=== PATIENT | female | born 1960 | race Caucasian/White ===

== ENCOUNTER → 2023-08-17 14:19 | Outpatient (REF) | payer OTHER, MEDICARE, SELFPAY | LOC: HWWDC 14:19 | PROVIDERS: ATTENDING PHYSICIAN Family Medicine | DX: Z12.31 Encounter for screening mammogram for malignant neoplasm of breast (principal) | CPT/HCPCS: 77063; 77067 ==

== ENCOUNTER → 2023-11-23 08:10 | Outpatient (REF) | payer OTHER, MEDICARE, SELFPAY | LOC: HWCARD 08:10 | PROVIDERS: ATTENDING PHYSICIAN Orthopaedic Surgery; FAMILY PHYSICIAN Family Medicine | DX: Z01.818 Encounter for other preprocedural examination (principal) | CPT/HCPCS: 93005 ==

== ENCOUNTER → 2024-01-25 08:41 | Outpatient (REF) | payer OTHER, MEDICARE, SELFPAY ==
[2024-01-25 12:13] LABS: % Basophils 0.9 % (0-2); % Eosinophils 1.2 % (0-6); % Immature Granulocytes 0.4 % (0-0.5); % Lymphocytes 38.4 % (20.5-51.1); % Neutrophils 52.1 % (42.2-75.2); Absolute Basophils 0.1 10^3/uL (0-0.2); Absolute Eosinophils 0.1 10^3/uL (0-0.7); Absolute Lymphocytes 2.2 10^3/uL (1.2-3.4); Absolute Monocytes 0.4 10^3/uL (0.1-0.6); Hematocrit 36.1 % (37.0-47.0); Hemoglobin 11.4 g/dL (12.0-16.0); Mean Corp Hgb Conc. 31.6 g/dL (33.0-37.0); Mean Corpuscular Hgb 25.9 pg (27.0-31.0); Mean Corpuscular Volume 81.9 fL (81.0-99.0); Mean Platelet Volume 9.4 fL (7.4-10.4); Nucleated Red Blood Cells % 0 %; Platelet Count 322 10^3/uL (130-400); Red Blood Cell Count 4.41 10^6/uL (4.20-5.40); Red Cell Dist. Width 14.1 % (11.5-14.5); White Blood Cell Count 5.7 10^3/uL (4.8-10.8)
[2024-01-25 12:26] LABS: Blood Urea Nitrogen 22 mg/dl (7-17); Calcium 9.7 mg/dl (8.4-10.2); Carbon Dioxide 29 mmol/L (22-30); Chloride 101 mmol/L (98-107); Glucose 138 mg/dl (70-99); Potassium 4.6 mmol/L (3.5-5.1); Sodium 142 mmol/L (135-145); eGFR > 60.00
== END ==
LOC: HWLAB 08:41
PROVIDERS: ATTENDING PHYSICIAN Orthopaedic Surgery; FAMILY PHYSICIAN Family Medicine
DX: Z01.818 Encounter for other preprocedural examination (principal)
CPT/HCPCS: 36415; 80048; 85025

== ENCOUNTER → 2024-08-13 08:18 | Outpatient (REF) | payer OTHER, MEDICARE, SELFPAY | LOC: RAD 08:18 | PROVIDERS: ATTENDING PHYSICIAN Physician Assistant | DX: R11.10 Vomiting, unspecified (principal); R63.4 Abnormal weight loss; R10.13 Epigastric pain; K21.9 Gastro-esophageal reflux disease without esophagitis; Z98.84 Bariatric surgery status | CPT/HCPCS: 74246 ==

== ENCOUNTER → 2024-09-19 07:53 | Outpatient (REF) | payer OTHER, MEDICARE, SELFPAY | LOC: HWWDC 07:53 | PROVIDERS: ATTENDING PHYSICIAN Family Medicine | DX: Z12.31 Encounter for screening mammogram for malignant neoplasm of breast (principal) | CPT/HCPCS: 77063; 77067 ==

== ENCOUNTER → 2024-10-10 09:56 | Outpatient (REF) | payer OTHER, MEDICARE, SELFPAY ==
[2024-10-10 10:45] VITALS: BP 110/64; BP_SYST 71
== END ==
LOC: RADI 09:56
PROVIDERS: ATTENDING PHYSICIAN Orthopaedic Surgery Hand Surgery; FAMILY PHYSICIAN Family Medicine
DX: M25.511 Pain in right shoulder (principal); Z96.611 Presence of right artificial shoulder joint
CPT/HCPCS: 20610; 36415; 73200; 76942; 77002; 85025; 85652; 86140; 87015; 87070; 87075; 87205

== ENCOUNTER → 2024-11-06 11:16 | Outpatient (REF) | payer OTHER, MEDICARE, SELFPAY | LOC: RAD 11:16 | PROVIDERS: ATTENDING PHYSICIAN Physician Assistant; FAMILY PHYSICIAN Family Medicine | DX: R10.13 Epigastric pain (principal); R63.4 Abnormal weight loss; R11.10 Vomiting, unspecified; Z98.84 Bariatric surgery status | CPT/HCPCS: 74177; Q9967 ==

== ENCOUNTER 2024-12-10 07:40 | Day surgery (SDC) | payer OTHER, MEDICARE, SELFPAY ==
--- NOTE | 2024-11-06 11:02 | CM ---
CM reviewed medical records. CM left message for CM [place]. CM will continue to follow.
--- NOTE | 2024-11-11 13:32 | CM ---
CM reviewed medical records.
Demographics: confirmed
Living situation: Lives with
Support Person Post Operatively:
History of
VN:yes, currently not on service
SNF: No
Outpatient: Plans to make appointment with [facility] when medically cleard.
Has patient purchased required equipment: yes
PCP: Pepe
Pharmacy: [facility]
Post Operative Discharge Plan: Outpatient PT when medically cleared.
[2024-11-29 14:12] VITALS: BMI 18.8
[2024-11-29 14:35] LABS: Hematocrit 33.3 % (37.0-47.0); Hemoglobin 10.2 g/dL (12.0-16.0); Mean Corp Hgb Conc. 30.6 g/dL (33.0-37.0); Mean Corpuscular Volume 79.5 fL (81.0-99.0); Platelet Count 314 10^3/uL (130-400); Red Cell Dist. Width 14.6 % (11.5-14.5)
[2024-11-29 15:29] LABS: ALT (SGPT) 16 U/L (0-35); AST (SGOT) 21 U/L (14-36); Albumin 4.4 g/dl (3.5-5.0); Alkaline Phosphatase 71 U/L (38-126); Blood Urea Nitrogen 14 mg/dl (7-17); Calcium 9.9 mg/dl (8.4-10.2); Carbon Dioxide 28 mmol/L (22-30); Chloride 104 mmol/L (98-107); Estimated Creatinine Clearance 92 ml/min; Glucose 86 mg/dl (70-99); Potassium 4.9 mmol/L (3.5-5.1); Sodium 139 mmol/L (135-145); Total Protein 7.4 g/dl (6.3-8.2); eGFR > 60.00
[2024-11-30 09:18] LABS: Glycohemoglobin (HgbA1c) 5.8 % (4.0-5.6)
[2024-12-10] VITALS (9 sets, daily range): BP systolic 104–122; BP diastolic 51–68; BMI 18.8
--- NOTE | 2024-12-10 06:53 | W.PN.ORTHO ---
Today's Communication / Plan
-
d/c when stable
Assessment
.
Dressing:
Clean, dry and intact.
Assessment:
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
with resultant iron deficiency. She is up to date with GI and was
place on iron supplement
-IV iron while inpatient-check B12 stores.
Plan
.
Surgery / Date: R Revision [facility]SA Dr Hobson 12/10/24
DVT Prophylaxis: Aspirin
Activity:
Out of bed.
PT/OT
Discharge Plan: Home
Subjective
.
.:
.
Vital Signs and Labs
.
Vital Signs and Labs:
Lab Results
11/29/24 12:22
11/29/24 12:22
[2024-12-10] MEDS: NORMOSOL-R/PLASMALYTE-A 1000 IV (07:51)
[2024-12-10] MEDS: CELEBREX 200 MG PO (07:51)
[2024-12-10] MEDS: TYLENOL 1000 MG PO (07:51)
[2024-12-10 07:54] LABS: Glucose - Point of Care 120 mg/dl (70-99)
--- NOTE | 2024-12-10 08:13 | W.DS.TRANS ---
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
-
Discharge Instructions:
Discharge Diagnosis/Procedures R Revision MAGALIE Hobson 12/10/24
Diet Diabetic, Carb Controlled
Activity With Walker
Driving Restrictions No driving
Bathing Restrictions OK to Shower
Instructions:
Stand-Alone Forms: Total Shoulder Replacement D/C
Changes to Home Medications: Yes
Discharge Medications:
DC Medications w/original date entered in [employer]
potassium citrate 15 mEq (1,620 mg) tablet,extended release 15 meq PO DAILY Electrolyte Repletion 02/04/19
alprazolam 0.25 mg tablet 0.25 mg PO BID 06/07/21
metformin 1,000 mg tablet 1,000 mg PO DAILY 06/07/21
pantoprazole 40 mg tablet,delayed release 40 mg PO DAILY Gastrointestinal issue 06/07/21
rosuvastatin 40 mg tablet (Crestor) 40 mg PO QPM High cholesterol 06/07/21
gabapentin 600 mg tablet 600 mg PO HS 06/09/21
dicyclomine 20 mg tablet 20 mg PO AC 06/14/21
zolpidem 10 mg tablet 10 mg PO HS 01/27/22
biotin 10,000 mcg capsule 10,000 mcg PO DAILY 11/28/24
aalvsegadg-vmhxvpo-cnzyvdgh 50 mg-325 mg-40 mg tablet 1 tab PO Q4H PRN migraines 11/28/24
finasteride 1 mg tablet (Propecia) 1 mg PO HS 11/28/24
multivitamin with iron 1 tab PO DAILY 11/28/24
nystatin 100,000 unit/gram topical powder 1 applic topical PRN PRN breast, abd fold rash 11/28/24
ropinirole 2 mg tablet 2 mg PO BID 11/28/24
tirzepatide 10 mg/0.5 mL subcutaneous pen injector (Mounjaro) 10 mg SC FR 11/28/24
venlafaxine 37.5 mg tablet,extended release 24 hr 37.5 mg PO DAILY 11/28/24
celecoxib 200 mg capsule 200 mg PO DAILY Anti-inflammatory #14 caps 11/29/24
dexamethasone 4 mg tablet 4 mg PO BID inflammation #6 tabs 11/29/24
doxycycline hyclate 100 mg capsule 100 mg PO BID infection prevention #10 caps 11/29/24
mupirocin 2 % topical ointment 1 applic topical BID infection prevention #1 tube 11/29/24
ondansetron 4 mg disintegrating tablet 4 mg PO Q6H PRN n/v #20 tabs 11/29/24
oxycodone 5 mg tablet 5 mg PO Q6H PRN 1 tab moderate pain, 2 tabs severe pain #30 tabs 11/29/24
Saccharomyces boulardii 250 mg capsule (Florastor) 250 mg PO BID #1 cap 12/10/24
acetaminophen 325 mg tablet (Tylenol) 650 mg (2 x 325 mg) PO QID #1 tab 12/10/24
aspirin 325 mg tablet 325 mg PO DAILY blood clot prevention #1 tab 12/10/24
docusate sodium 100 mg capsule (Colace) 100 mg PO BID stool softner #1 cap 12/10/24
hydrochlorothiazide 25 mg tablet 25 mg PO DAILY Fluid retention/Swelling #0 tabs 12/10/24
magnesium hydroxide 400 mg/5 mL oral suspension (Milk of Magnesia) 30 ml PO HS PRN constipation #1 mL 12/10/24
sennosides 8.6 mg tablet (Senokot) 17.2 mg (2 x 8.6 mg) PO BID laxative #2 tabs 12/10/24
Home Medication Changes
celecoxib 200 mg capsule 200 mg PO DAILY Anti-inflammatory #14 caps 11/29/24
dexamethasone 4 mg tablet 4 mg PO BID inflammation #6 tabs 11/29/24
doxycycline hyclate 100 mg capsule 100 mg PO BID infection prevention #10 caps 11/29/24
mupirocin 2 % topical ointment 1 applic topical BID infection prevention #1 tube 11/29/24
ondansetron 4 mg disintegrating tablet 4 mg PO Q6H PRN n/v #20 tabs 11/29/24
oxycodone 5 mg tablet 5 mg PO Q6H PRN 1 tab moderate pain, 2 tabs severe pain #30 tabs 11/29/24
Saccharomyces boulardii 250 mg capsule (Florastor) 250 mg PO BID #1 cap 12/10/24
acetaminophen 325 mg tablet (Tylenol) 650 mg (2 x 325 mg) PO QID #1 tab 12/10/24
aspirin 325 mg tablet 325 mg PO DAILY blood clot prevention #1 tab 12/10/24
docusate sodium 100 mg capsule (Colace) 100 mg PO BID stool softner #1 cap 12/10/24
hydrochlorothiazide 25 mg tablet 25 mg PO DAILY Fluid retention/Swelling #0 tabs 12/10/24
magnesium hydroxide 400 mg/5 mL oral suspension (Milk of Magnesia) 30 ml PO HS PRN constipation #1 mL 12/10/24
sennosides 8.6 mg tablet (Senokot) 17.2 mg (2 x 8.6 mg) PO BID laxative #2 tabs 12/10/24
Pending Results: No
[2024-12-10 09:26] LABS: Vitamin B12 345 pg/ml (239-931)
[2024-12-10 11:28] LABS: Glucose - Point of Care 119 mg/dl (70-99)
[2024-12-10] MEDS: SUBLIMAZE 50 MCG IV (11:47)
[2024-12-10] MEDS: ANCEF 5 IV (13:26)
== END 2024-12-10 13:46 | disposition home or self-care (01) ==
LOC: SDS 07:40
PROVIDERS: Physician Assistant Medical; ATTENDING PHYSICIAN Orthopaedic Surgery Hand Surgery; FAMILY PHYSICIAN Family Medicine
PROC: 0RRJ0J7 Replacement of Right Shoulder Joint with Synthetic Substitute, Glenoid Surface, Open Approach (ICD-10-PCS; 2024-12-10)
PROC: 0RPJ0J7 Removal of Synthetic Substitute from Right Shoulder Joint, Glenoid Surface, Open Approach (ICD-10-PCS; 2024-12-10)
DX: T84.098A Other mechanical complication of other internal joint prosthesis, initial encounter (principal); K90.9 Intestinal malabsorption, unspecified; Y79.2 Prosthetic and other implants, materials and accessory orthopedic devices associated with adverse incidents; I10 Essential (primary) hypertension; E78.5 Hyperlipidemia, unspecified; R06.09 Other forms of dyspnea; E11.9 Type 2 diabetes mellitus without complications; K21.9 Gastro-esophageal reflux disease without esophagitis; D50.9 Iron deficiency anemia, unspecified; F32.A Depression, unspecified; F41.9 Anxiety disorder, unspecified; G47.00 Insomnia, unspecified; Z96.651 Presence of right artificial knee joint; Z96.611 Presence of right artificial shoulder joint; Z98.84 Bariatric surgery status; Z98.1 Arthrodesis status; Z87.891 Personal history of nicotine dependence; Z79.84 Long term (current) use of oral hypoglycemic drugs; Z79.85 Long-term (current) use of injectable non-insulin antidiabetic drugs; Z86.0100 Personal history of colon polyps, unspecified
CPT/HCPCS: 23474; 36415; 73020; 80053; 82607; 82962; 83036; 85027; 86850; 86900; 86901; 87070; 93005; C1713; C1776

== ENCOUNTER 2024-12-18 21:06 | Observation (INO) | payer OTHER, MEDICARE, SELFPAY ==
[2024-12-18] VITALS (15 sets, daily range): BP systolic 98–157; BP diastolic 55–78; BMI 26.4
[2024-12-18 14:58] LABS: Hematocrit 34.6 % (37.0-47.0); Hemoglobin 10.8 g/dL (12.0-16.0); Mean Corp Hgb Conc. 31.2 g/dL (33.0-37.0); Mean Corpuscular Volume 75.1 fL (81.0-99.0); Nucleated Red Blood Cells % 0 %; Platelet Count 330 10^3/uL (130-400); Red Cell Dist. Width 15.6 % (11.5-14.5)
[2024-12-18 15:11] LABS: ALT (SGPT) 15 U/L (0-35); AST (SGOT) 16 U/L (14-36); Albumin 4.4 g/dl (3.5-5.0); Alkaline Phosphatase 76 U/L (38-126); Blood Urea Nitrogen 14 mg/dl (7-17); Calcium 9.7 mg/dl (8.4-10.2); Carbon Dioxide 26 mmol/L (22-30); Chloride 99 mmol/L (98-107); Glucose 142 mg/dl (70-99); Lipase 94 U/L (23-300); Potassium 2.8 mmol/L (3.5-5.1); Sodium 135 mmol/L (135-145); Total Protein 7.4 g/dl (6.3-8.2); eGFR > 60.00
[2024-12-18] MEDS: NSS 1000 IV (16:09)
[2024-12-18] MEDS: ZOFRAN 4 MG IV ×2 (16:12→17:22)
[2024-12-18] MEDS: DILAUDID 0.5 MG IV ×2 (16:13→17:25)
[2024-12-18 16:28] LABS: Magnesium 1.9 mg/dl (1.6-2.3)
--- NOTE | 2024-12-18 16:58 | ED.GENMED ---
History of Present Illness
<Lynsey Driver PA-C - Last Filed: 12/19/24 16:48>
General
Chief Complaint: Abdominal Symptoms
Source: patient
Exam Limitations: none
Time Seen by Provider: 12/18/24 14:40
Nursing documentation reviewed up to this point in time: agreed with
History of Present Illness
History of Present Illness:
Patient is a 64-year-old female with history diabetes who presents to the emergency department for evaluation of abdominal pain and intractable vomiting. She reports onset of pain Monday associated with multiple episodes of vomiting. She has had
pretty significant anorexia and has been unable to tolerate any oral intake over the past few days. She initially thought symptoms were secondary to constipation however she did have a bowel movement on Monday and symptoms persisted. No fever or
chills. No diarrhea. No chest pain or shortness of breath.
Patient is 8 days postop from right total shoulder replacement performed by Dr. Hobson. This was uncomplicated. She is not on any narcotic pain medication or oral anticoagulation.
Patient had a gastric bypass surgery many years ago. No history of bowel obstructions.
Past History
<Lynsey Driver PA-C - Last Filed: 12/19/24 16:48>
Past History
ED Past Medical History: GERD and NIDDM
ED Past Surgical History: Orthopedic
Social History
Tobacco: Former smoker
Alcohol: None
Drug: None
Personal:
Living: with family
Review of Systems
<Lynsey Driver PA-C - Last Filed: 12/19/24 16:48>
Review of Systems
Allergies reviewed?: Yes
All Other Systems: ROS reviewed and negative except as documented in HPI and ROS
Phy Exam
<Lynsey Driver PA-C - Last Filed: 12/19/24 16:48>
Physical Exam
Physical Exam:
Vitals: Patient's vital signs are stable. Afebrile
General: Patient is actively retching and uncomfortable appearing.
Skin: Warm and dry, no rashes or lesions
Head: Normocephalic, atraumatic
Eyes: Sclera nonicteric. EOMs intact. No nystagmus.
Throat: Protecting airway
Neck: Normal ROM, no cervical spine tenderness, no meningismus
Cardiac: Regular rate and rhythm, no murmurs.
Pulm: Normal respiratory effort, no wheezes, rales, rhonchi heard on exam
Abdomen: Abdomen soft. No areas of focal tenderness. No rebound tenderness or guarding.
Extremities: No evidence of cyanosis or edema. Well-healing surgical scar on right shoulder. No surrounding erythema or bleeding.
Neuro: AAOx3. Grossly intact.
Psychiatric: Normal affect.
Course
<Lynsey Driver PA-C - Last Filed: 12/19/24 16:48>
Orders/Labs/Results
Orders:
Orders
12/18/24 14:35
Complete Blood Count/With Diff Urgent
Comprehensive Metabolic Panel Urgent
Lipase Urgent
Magnesium Urgent
Comment: ADD ON
12/18/24 Dinner
NPO
Allow oral meds: Yes
Allow clear liquids: No
NPO with Ice Chips: Yes
12/18/24 15:12
Electrocardiogram (*1) Stat
Reason for Study: Other
Other Reason for Exam: chest pain
Cardiac Monitoring- Treatment ONCE
EKG- Treatment ONCE
12/18/24 15:32
Add On- LAB Urgent
Tests Added?: magnesium
0.9% Sodium Chloride 1000 ml [Nss] 1,000 ml IV BOLUS
Iohexol [Omnipaque] See Protocol PO NOW STA
Ondansetron Injectable [Zofran] 4 mg IV NOW STA
12/18/24 15:33
CT Abd/Pel (IV only)-DH only Urgent
Reason For Exam: Diffuse abdominal pain
12/18/24 15:54
HYDROmorphone [Dilaudid] 0.5 mg IV NOW STA
12/18/24 16:10
Lactic Acid Q4H
Comment: CANCEL 2nd LACTIC ACID IF 1st LACTIC ACID IS LESS THAN 2
12/18/24 17:12
HYDROmorphone [Dilaudid] 0.5 mg IV NOW STA
Ondansetron Injectable [Zofran] 4 mg IV NOW STA
12/18/24 17:20
Potassium Chloride [KCl] 40 meq 0.9% Sodium Chloride 250 ml [Nss] 250 ml IV NOW
12/18/24 18:00
0.9% Sodium Chloride 500 ml [Nss] 500 ml IV 100 mls/hr
12/18/24 19:43
Alprazolam [Xanax] 0.25 mg PO NOW STA
Promethazine [Phenergan] 12.5 mg 0.9% Sodium Chloride 50 ml [Nss] 50 ml IV NOW
12/18/24 19:44
HYDROmorphone [Dilaudid] 1 mg IV NOW STA
Pantoprazole [Protonix IV] 40 mg IV NOW STA
12/18/24 19:45
0.9% Sodium Chloride 1000 ml [Nss] 1,000 ml IV 100 mls/hr
12/18/24 19:51
Admit/Transfer Patient As Directed
Co-Sign Provider:
Level of Care: Observation services
Assign to:: Medical/Surgical
Physician / Group: colette cole
Diagnosis: duodenitis wintract vomitiing post r shoulder, hypokalemia
Code Status As Directed
Resuscitation Status: Full Code
12/18/24 19:55
PRN Pain Medication Management As Directed
May give lesser potent ordered pain med per pt: Yes
preference::
Protocol:: Medication orders for pain may be administered in a
manner that supports deferring to patient preference
when the pt is:
- Requesting an ordered lesser potent pain medication.
Least to most potent pain medications are defined
as: acetaminophen < NSAID < tramadol < opioids
(morphine, oxycodone, hydromorphone).
- Requesting a lesser dose of the same medication IF
ORDERED.
- Requesting a less intrusive route of administration
if both routes are prescribed by the provider (PO <
IV).
12/18/24 19:57
0.9% Sodium Chloride [Nss (Preservative Free)] 10 ml IV NOW STA
12/18/24 20:19
0.9% Sodium Chloride 1000 ml [Nss] 1,000 ml Mvi, Adult [Multivitamin] 10 ml Thiamine Injection 100 mg IV 100 mls/hr
12/18/24 21:36
Dextrose 50%-Water [Dextrose 50% Syringe] 12.5 grams IV [id number] PRN
Glucagon [GlucaGen] 1 mg IM PRN PRN
Heparin 5,000 units SC Q12
Ondansetron Injectable [Zofran] 4 mg IV Q6HPRN PRN
Promethazine [Phenergan] 12.5 mg 0.9% Sodium Chloride 50 ml [Nss] 50 ml IV Q4HPRN
Ropinirole [Requip] 2 mg PO BID
12/18/24 21:36
Activity As Directed
Activity Level: As Tolerated
Bedside Glucose Monitoring As Directed
Frequency: AC&HS
Additional Instructions:: Change to q6h if pt on TPN, tube feeding or not eating
Vital Signs As Directed
Frequency: Per unit guidelines
DX Deep Vein Thrombosis Video Routine
12/18/24 22:00
Gabapentin [Neurontin] 600 mg PO HS
12/19/24 00:00
Potassium Chloride [KCl] 40 meq 0.9% Sodium Chloride 250 ml [Nss] 250 ml IV ONCE
12/19/24 07:13
Complete Blood Count/With Diff IN AM
Comprehensive Metabolic Panel IN AM
12/19/24 07:30
Dicyclomine [Bentyl] 40 mg PO AC
Insulin Aspart Corrective Low [Novolog Flexpen-Low Resistance] See Protocol SC AC
12/19/24 08:00
Alprazolam [Xanax] 0.25 mg PO TIDPRN PRN ANEXITY
Venlafaxine Extended Release [Effexor Xr] 37.5 mg PO DAILY
Abnormal Lab Results
12/18/24
14:35
WBC 12.6 H 10^3/uL
(4.8-10.8)
Hgb 10.8 L g/dL
(12.0-16.0)
Hct 34.6 L %
(37.0-47.0)
MCV 75.1 L fL
(81.0-99.0)
MCH 23.4 L pg
(27.0-31.0)
MCHC 31.2 L g/dL
(33.0-37.0)
RDW 15.6 H %
(11.5-14.5)
Abs Immat Gran (auto) 0.1 H 10^3/uL
(0-0.05)
Absolute Neuts (auto) 10.6 H 10^3/uL
(1.4-6.5)
Absolute Monos (auto) 0.7 H 10^3/uL
(0.1-0.6)
Neutrophils % 84.1 H %
(42.2-75.2)
Lymphocytes % 9.5 L %
(20.5-51.1)
Potassium 2.8 L mmol/L
(3.5-5.1)
Creatinine 0.4 L mg/dL
(0.6-1.0)
Glucose 142 H mg/dl
(70-99)
10/01/25 14:35
12/18/24 14:35
Vital Signs
Initial and Last Documented VS:
Initial Vital Signs
Temp Pulse Resp BP Pulse Ox
99.0 F 107 20 119/61 100
12/18/24 14:16 12/18/24 14:16 12/18/24 14:16 12/18/24 14:16 12/18/24 14:16
Last Documented Vital Signs
Temp Pulse Resp BP Pulse Ox
98.9 F 72 18 164/82 99
12/19/24 15:45 12/19/24 15:45 12/19/24 15:45 12/19/24 15:45 12/19/24 15:45
<Zi Tam, DO - Last Filed: 12/18/24 18:43>
Orders/Labs/Results
Orders:
Orders
12/18/24 14:35
Complete Blood Count/With Diff Urgent
Comprehensive Metabolic Panel Urgent
Lipase Urgent
Magnesium Urgent
Comment: ADD ON
12/18/24 Dinner
NPO
Allow oral meds: Yes
Allow clear liquids: No
NPO with Ice Chips: Yes
12/18/24 15:12
Electrocardiogram (*1) Stat
Reason for Study: Other
Other Reason for Exam: chest pain
Cardiac Monitoring- Treatment ONCE
EKG- Treatment ONCE
12/18/24 15:32
Add On- LAB Urgent
Tests Added?: magnesium
0.9% Sodium Chloride 1000 ml [Nss] 1,000 ml IV BOLUS
Iohexol [Omnipaque] See Protocol PO NOW STA
Ondansetron Injectable [Zofran] 4 mg IV NOW STA
12/18/24 15:33
CT Abd/Pel (IV only)-DH only Urgent
Reason For Exam: Diffuse abdominal pain
12/18/24 15:54
HYDROmorphone [Dilaudid] 0.5 mg IV NOW STA
12/18/24 16:10
Lactic Acid Q4H
Comment: CANCEL 2nd LACTIC ACID IF 1st LACTIC ACID IS LESS THAN 2
12/18/24 17:12
HYDROmorphone [Dilaudid] 0.5 mg IV NOW STA
Ondansetron Injectable [Zofran] 4 mg IV NOW STA
12/18/24 17:20
Potassium Chloride [KCl] 40 meq 0.9% Sodium Chloride 250 ml [Nss] 250 ml IV NOW
12/18/24 18:00
0.9% Sodium Chloride 500 ml [Nss] 500 ml IV 100 mls/hr
12/18/24 19:43
Alprazolam [Xanax] 0.25 mg PO NOW STA
Promethazine [Phenergan] 12.5 mg 0.9% Sodium Chloride 50 ml [Nss] 50 ml IV NOW
12/18/24 19:44
HYDROmorphone [Dilaudid] 1 mg IV NOW STA
Pantoprazole [Protonix IV] 40 mg IV NOW STA
12/18/24 19:45
0.9% Sodium Chloride 1000 ml [Nss] 1,000 ml IV 100 mls/hr
12/18/24 19:51
Admit/Transfer Patient As Directed
Co-Sign Provider:
Level of Care: Observation services
Assign to:: Medical/Surgical
Physician / Group: colette cole
Diagnosis: duodenitis wintract vomitiing post r shoulder, hypokalemia
Code Status As Directed
Resuscitation Status: Full Code
12/18/24 19:55
PRN Pain Medication Management As Directed
May give lesser potent ordered pain med per pt: Yes
preference::
Protocol:: Medication orders for pain may be administered in a
manner that supports deferring to patient preference
when the pt is:
- Requesting an ordered lesser potent pain medication.
Least to most potent pain medications are defined
as: acetaminophen < NSAID < tramadol < opioids
(morphine, oxycodone, hydromorphone).
- Requesting a lesser dose of the same medication IF
ORDERED.
- Requesting a less intrusive route of administration
if both routes are prescribed by the provider (PO <
IV).
12/18/24 19:57
0.9% Sodium Chloride [Nss (Preservative Free)] 10 ml IV NOW STA
12/18/24 20:19
0.9% Sodium Chloride 1000 ml [Nss] 1,000 ml Mvi, Adult [Multivitamin] 10 ml Thiamine Injection 100 mg IV 100 mls/hr
12/18/24 21:36
Dextrose 50%-Water [Dextrose 50% Syringe] 12.5 grams IV [id number] PRN
Glucagon [GlucaGen] 1 mg IM PRN PRN
Heparin 5,000 units SC Q12
Ondansetron Injectable [Zofran] 4 mg IV Q6HPRN PRN
Promethazine [Phenergan] 12.5 mg 0.9% Sodium Chloride 50 ml [Nss] 50 ml IV Q4HPRN
Ropinirole [Requip] 2 mg PO BID
12/18/24 21:36
Activity As Directed
Activity Level: As Tolerated
Bedside Glucose Monitoring As Directed
Frequency: AC&HS
Additional Instructions:: Change to q6h if pt on TPN, tube feeding or not eating
Vital Signs As Directed
Frequency: Per unit guidelines
DX Deep Vein Thrombosis Video Routine
12/18/24 22:00
Gabapentin [Neurontin] 600 mg PO HS
12/19/24 00:00
Potassium Chloride [KCl] 40 meq 0.9% Sodium Chloride 250 ml [Nss] 250 ml IV ONCE
12/19/24 07:13
Complete Blood Count/With Diff IN AM
Comprehensive Metabolic Panel IN AM
12/19/24 07:30
Dicyclomine [Bentyl] 40 mg PO AC
Insulin Aspart Corrective Low [Novolog Flexpen-Low Resistance] See Protocol SC AC
12/19/24 08:00
Alprazolam [Xanax] 0.25 mg PO TIDPRN PRN ANEXITY
Venlafaxine Extended Release [Effexor Xr] 37.5 mg PO DAILY
Abnormal Lab Results
12/18/24
14:35
WBC 12.6 H 10^3/uL
(4.8-10.8)
Hgb 10.8 L g/dL
(12.0-16.0)
Hct 34.6 L %
(37.0-47.0)
MCV 75.1 L fL
(81.0-99.0)
MCH 23.4 L pg
(27.0-31.0)
MCHC 31.2 L g/dL
(33.0-37.0)
RDW 15.6 H %
(11.5-14.5)
Abs Immat Gran (auto) 0.1 H 10^3/uL
(0-0.05)
Absolute Neuts (auto) 10.6 H 10^3/uL
(1.4-6.5)
Absolute Monos (auto) 0.7 H 10^3/uL
(0.1-0.6)
Neutrophils % 84.1 H %
(42.2-75.2)
Lymphocytes % 9.5 L %
(20.5-51.1)
Potassium 2.8 L mmol/L
(3.5-5.1)
Creatinine 0.4 L mg/dL
(0.6-1.0)
Glucose 142 H mg/dl
(70-99)
12/18/24 14:35
12/18/24 14:35
Vital Signs
Initial and Last Documented VS:
Initial Vital Signs
Temp Pulse Resp BP Pulse Ox
99.0 F 107 20 119/61 100
12/18/24 14:16 12/18/24 14:16 12/18/24 14:16 12/18/24 14:16 12/18/24 14:16
Last Documented Vital Signs
Temp Pulse Resp BP Pulse Ox
98.9 F 72 18 164/82 99
12/19/24 15:45 12/19/24 15:45 12/19/24 15:45 12/19/24 15:45 12/19/24 15:45
<Lynsey Driver PA-C - Last Filed: 12/19/24 16:48>
MDM/Problems Addressed
Differential Diagnosis Includes:
Not limited to: viral gastroenteritis, bowel obstruction, diverticulitis, pancreatitis, acute cholecystitis, etc
MDM/Problems Addressed:
64-year-old female with four days of diffuse abdominal pain and intractable vomiting, unable to tolerate PO intake. She is 8 days s/p right total shoulder replacement. No fevers.
Vitals and physical exam as above.
Labs were sent prior to my initial evaluation significant for mild leukocytosis and acute hypokalemia with potassium of 2.8. I suspect this is likely secondary to G.I. losses.
Will add on magnesium level and obtain lactic acid. Will get CT scan abdomen/pelvis. Will treat pain, give IV fluids and reassess.
Update: magnesium and lactic acid level normal. Patient unfortunately was unable to tolerate oral contrast due to intractable vomiting. However � her CT scan shows no evidence of obstruction, however, does note findings of likely duoddenitis.
No fever � will hold antibiotics at this time. However � given acute hypokalemia and intractable vomiting, patient will require admission for further management. Patient given 40 IV potassium in ED. Hospitalist aware.
Chronic conditions affecting care:
N/A
Acute Exacerbation and/or Progression of Chronic Illness:
N/A
<Lynsey Driver PA-C - Last Filed: 12/19/24 16:48>
*Radiology
Radiology exam reviewed: radiology read reviewed
*Pulse Oximetry
SaO2: 98
Oxygen Mode of Delivery: Room air
Patient hypoxic: no
*EKG
Interpreted by ED Provider?: Yes
EKG Intrepretation Date: 12/18/24
Interpretation: abnormal
Comparison EKG: changes noted
Heart Rate: 82
Rate: normal
Rhythm: sinus
Ridge: normal axis
Interval: normal QT interval
QRS Pattern: normal QRS
Ischemia: non-specific ST changes
*Bale Piler Interpretation
Rate: normal
Interpretation: normal
Heart Rate: 72
Rhythm: sinus
*Critical Care Note
Total Time (30-74mins, 75-104mins- exclusive of procedures): Not Applicable
<Lynsey Driver PA-C - Last Filed: 12/19/24 16:48>
Patient Management
Discussion with other providers: Hospitalist
Escalation/DeEscalation of care consider admission/obs:
Admitted for acute hypokalemia, pain management
ED Attending Note
<Lynsey Driver PA-C - Last Filed: 12/19/24 16:48>
-
Portions of this chart may have been created with voice recognition software.� Occasional wrong word or��sound alike� substitutions may have occurred due to the inherent limitations of voice recognition software.
<Zi Tam DO - Last Filed: 12/18/24 18:43>
ED Attending Note
Patient seen and examined by attending physician: Yes
I performed the substantive portion of visit, reviewed & personally made and approve the management plan that is documented in note by myself or ELIAS.: Yes
ED Attending Note:
Seen with PA examined independently abdominal pain nausea vomiting low potassium CT report noted labs are noted not tolerating p.o. will require admission
Discharge Plan
Departure
Patient Disposition: Admit
Date of Disposition: 12/18/24
Time of Disposition: 18:09
Presentation/result/management discussed w/ accepting MD/DO: Hospitalist
Discharge Problem:
Acute duodenitis, Acute hypokalemia
Interventions
Interventions:
*Risk Screen - Suicide Last Done: 12/18/24 21:48
*General Assessment Last Done: 12/18/24 14:16
*Neglect/Abuse Screening Last Done: 12/18/24 14:44
*ED COVID-19 Vaccine History Last Done: 12/18/24 14:44
*ED Influenza Vaccine History Last Done: 12/18/24 14:44
*Nursing Disposition Last Done: 12/18/24 21:35
AD-Tetquk-Shdkobsoqp Assessment Last Done: 12/18/24 14:44
Discharge Date and Time
Discharge Date/Time: 12/18/24 21:36
[2024-12-18] MEDS: NSS 500 IV (18:04)
[2024-12-18] MEDS: KCL 270 MEQ IV ×2 (18:05→23:38)
--- NOTE | 2024-12-18 19:19 | HPS.HSE ---
Family Physician
-
Family Physician: Ham Price
Chief Complaint
-
Intractable abdominal pain with vomiting
History of Present Illness
64-year-old female complaining of abdominal pain with intractable vomiting since Monday x 3 days. She reports inability to tolerate any oral intake over the past few days. She thought symptoms were due to prior constipation for 4 days post surgery
however she did have bowel movement on Monday. She does report taking Celebrex once daily from Monday to Monday along with Tylenol and she did take her Mounjaro postsurgery on 12/13. She is 8 days postop from right total shoulder replacement
performed by Dr. Hobson with dressing in place over the right shoulder. She states she has had ongoing abdominal pain and has been decreasing her Mounjaro dose she had recent [facility] [place] with [facility] in [place] that was normal
and thought to be possibly gastroparesis from Mounjaro and patient's gastric bypass however patient states she has never had persistent vomiting from her abdominal pain.
She denies fever, chills, chest pain, palpitations, cough, shortness of breath, diarrhea, rash, urinary symptoms. She has past medical history of gastric bypass surgery, GERD, DM 2, HLD, migraines, renal calculi, arthritis, anxiety, insomnia.
Medical History
Past Medical History
Past Medical History: Reports Other
Additional Past Medical History:
Gastric bypass surgery
GERD
DM 2
HLD
Migraines
Renal calculi
Arthritis
Anxiety
Insomnia
Past Surgical History: Reports Other
Additional Past Surgical History:
Gastric bypass
L5 fusion 2018
Right shoulder replacement June 2018, November 2024
section x 3
Hammertoe repair
CTR both wrist
Right knee surgery
Social History
Tobacco: Non-smoker
Alcohol: None
Drug: None
Personal:
Living: With Family ()
Family History
Family History: Not pertinent
Allergies / Home Medications
Allergies reflects when Allergies were last updated in [facility].
Home Medications with original date entered in [facility]
Allergy/Medication List:
Allergies
Allergy/AdvReac Type Severity Reaction Status Date / Time
No Known Allergies Allergy Verified 12/18/24 14:20
Home Medications
potassium citrate 15 mEq (1,620 mg) tablet,extended release 15 meq PO BID Electrolyte Repletion 02/04/19
alprazolam 0.25 mg tablet 0.25 mg PO TIDPRN PRN ANEXITY 06/07/21
metformin 1,000 mg tablet 1,000 mg PO DAILY 06/07/21
pantoprazole 40 mg tablet,delayed release 40 mg PO DAILY Gastrointestinal issue 06/07/21
rosuvastatin 40 mg tablet (Crestor) 40 mg PO QPM High cholesterol 06/07/21
gabapentin 600 mg tablet 600 mg PO HS 06/09/21
dicyclomine 20 mg tablet 40 mg PO AC 06/14/21
zolpidem 10 mg tablet 10 mg PO HS 01/27/22
biotin 10,000 mcg capsule 10,000 mcg PO DAILY 11/28/24
mytktaefwq-tcbzehx-cmaimfzh 50 mg-325 mg-40 mg tablet 1 tab PO Q6HPRN PRN HEADACHES 11/28/24
finasteride 1 mg tablet (Propecia) 1 mg PO HS 11/28/24
ropinirole 2 mg tablet 2 mg PO BID 11/28/24
tirzepatide 10 mg/0.5 mL subcutaneous pen injector (Mounjaro) 10 mg SC FR 11/28/24
venlafaxine 37.5 mg tablet,extended release 24 hr 37.5 mg PO DAILY 11/28/24
hydrochlorothiazide 25 mg tablet 25 mg PO DAILY Fluid retention/Swelling #0 tabs 12/10/24
estradiol 0.01% (0.1 mg/gram) vaginal cream (Estrace) 1 appful vaginal WESA 12/18/24
therapeutic multivitamin 1 tab PO DAILY 12/18/24
Review of Systems
-
History Source: Patient and Family ( at bedside)
A 12 point ROS was completed and negative except as noted: Yes
Constitutional: Denies Chills
EENT: Denies Sore Throat or Runny Nose
Respiratory: Denies Cough or Trouble Breathing
Cardiac: Denies Chest Pain, Diaphoresis, Palpitations or Syncope
Abdomen/GI: Reports Abdominal Pain, Nausea and Vomiting; Denies Diarrhea or Constipated
: Denies Dysuria, Frequency, Flank Pain, Incontinence, Difficulty Voiding or Urgency
Musculoskeletal: Reports Joint Pain (Status post right shoulder replacement dressing in place); Denies Edema
Skin: Denies Itching or Rash
Neurological: Denies Dizzy, Headache or Weakness
Endocrine: Reports No Symptoms
Hematologic/Lymphatic: Reports No Symptoms
Psych: Reports Anxiety
Physical Exam
Vital Signs
Vital Signs
Temp Pulse Resp BP Pulse Ox
98.5 F 76 17 151/76 99
12/18/24 17:19 12/18/24 19:00 12/18/24 19:00 12/18/24 19:00 12/18/24 18:45
Physical Exam
General: Conversant and Pain; No Fever or Chills
HEENT: NormoCephalic, Anicteric, Moist mucous membranes, PERRLA, [place] Conjunctivae and No Ptosis
Respiratory: Clear; No Wheezes, Rales or Rhonchi
Cardiac: S1/S2 and Regular Rhythm; No Murmur, Rub, Gallop or Peripheral Edema
Breast: Deferred by me
GI: Soft, Non Distended, Normal Bowel Sounds and Tender (Generalized)
Rectal: Deferred by Provider
Genito-urinary: Deferred by me
Musculoskeletal: No Clubbing, No Cyanosis and No Edema
Skin: Warm and Dry; No Rash
Neuro: AO x 3, No Motor Deficits, Nonfocal/grossly intact, Cranial Nerves Intact and No Sensory Deficits; No Slurred Speech, Facial Droop, Tremors or Sedated
Psych: Anxious (Due to pain)
Laboratory Results
-
12/18/24 14:35
12/18/24 14:35
Laboratory Results
Lactic Acid Cancelled 12/18/24 19:45
Total Bilirubin 0.5 mg/dl (0.2-1.3) 12/18/24 14:35
AST 16 U/L (14-36) 12/18/24 14:35
ALT 15 U/L (0-35) 12/18/24 14:35
Alkaline Phosphatase 76 U/L (38-126) 12/18/24 14:35
Lipase 94 U/L (23-300) 12/18/24 14:35
Impression/Plan
-
Impression/plan:
Admit to [facility]
#Duodenitis with intractable vomiting likely due to surgery, Celebrex, Mounjaro
#History of gastric bypass
-1500 cc IV NSS given in ER
- Continue IV NSS 100 cc an hour
- IV Zofran, Phenergan
- - IV Protonix
- IV Dilaudid for pain
- Hold HCTZ
-IV banana Bag
- N.p.o. except ice chips
#Status post right shoulder replacement [address] Hobson
- Patient with dressing in place
#Acute hypokalemia due to vomiting
K2.8 KCl 40 mEq rider given in ER
Will give additional KCl 40 mEq rider at midnight
Follow BMP in a.m.
#Gastric bypass surgery
#GERD
-Patient follows with GI Dr. Lagunas in [place] recent [place] [facility] within the last 2 months due to chronic abdominal pain
-Continue IV Protonix 40 mg daily
#DM 2
Hold metformin 1000 mg daily, Mounjaro 10 mg subcu Monday patient last dose was on 12/13/2024 postsurgery
Accu-Cheks with SSI
#HLD
-Hold Crestor 40 mg every afternoon
#Anxiety
Will give alprazolam 0.25 mg now
- Continue alprazolam 0.25 mg p.o. 3 times daily as needed anxiety
-Continue Effexor 37.5 mg daily
#Insomnia
Hold Ambien 10 mg at bedtime
#Restless leg syndrome
Continue gabapentin 600 mg at bedtime and Requip as tolerated
Other PMH:
Migraines no current migraine
Renal calculi-continue potassium citrate 15 mEq p.o. twice daily
Arthritis
DVT prophylaxis
Subcu Lovenox
Full code
--- NOTE | 2024-12-18 20:05 | W.PN.UPDATE ---
Update Note
Progress Note Update
This note serves as an addendum to the H&P by replanting machine operator Hayde Sorto
HPI
64F HX Gastric bypass surgery, GERD, T2DM seen at ER
- Intractable abdominal pain with intractable vomiting since Monday x 3 days.
- inability to tolerate any oral intake over the past few days
- S/P R shoulder replacement on 12/10/[address] Hobson
- does report taking Celebrex once daily from Monday to Monday along with Tylenol
- she did take Tirzepadide (Mounjaro) one a week and she took postsurgery on 12/13.
- has had ongoing abdominal pain and has been decreasing her Mounjaro
- [facility] in [place] that was normal and thought to be possibly gastroparesis from Mounjaro and patient's gastric bypass however patient states she has never had persistent vomiting from her abdominal pain.
ROS
denies fever, chills, chest pain, palpitations, cough, shortness of breath, diarrhea, rash, urinary symptoms.
PHX
Relevant VS
Temp Pulse Resp BP Pulse Ox
98.5 F 76 17 151/76 99
12/18/24 17:19 12/18/24 19:00 12/18/24 19:00 12/18/24 19:00 12/18/24 18:45
PE
Gen: NAD
HEENT: anicteric
Neck: supple
Lungs: CTA
Cor: S1/S2 and Regular Rhythm
Abdomen:�Soft, Non Distended,
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
MS: no edema
Relevant Data
12/18/24
14:35
WBC 12.6 H
Hgb 10.8 L
Hct 34.6 L
MCV 75.1 L
MCH 23.4 L
MCHC 31.2 L
RDW 15.6 H
Abs Immat Gran (auto) 0.1 H
Absolute Neuts (auto) 10.6 H
Absolute Monos (auto) 0.7 H
Neutrophils % 84.1 H
Lymphocytes % 9.5 L
Potassium 2.8 L
Creatinine 0.4 L
Glucose [address] Abd/Pel (IV only)-DH only
- Stable postsurgical changes related to previous gastric bypass procedure.
- No gastric dilatation.
- Moderate circumferential wall thickening of the duodenum, raising possibility of duodenitis in the proper clinical setting.
- No bowel obstruction.
- No obstructive uropathy.
ASSESSMENT & PLAN
Duodenitis with epigastric tenderness
HX GERD on EASEMENT MAN PO PPI daily
- associated intractable vomiting likely due to surgery, Celebrex, Mounjaro
- s/p IV NS 1.5 L given in ER
- c/w IV NS
- IV Zofran, Phenergan
- IV Protonix daily
- IV Dilaudid for pain
- Hold HCTZ
Hypokalemia due to UGI loss
- s/p IV KCl 40 x 1 at ER
- Repeat IV KCL 40 at MN
S/P R shoulder replacement [address] Hobson
- dressing in place
Gastric bypass surgery HX
- follows with GI Dr. Lagunas in [place] recent [facility] within the last 2 months due to chronic abdominal pain
- c/w Protonix 40 mg daily
- Empiric IV Banana bag
DMT2
- Hold metformin 1000 mg daily,
- Hold Mounjaro 10 mg subcu Monday patient last dose was on 12/13/2024 postsurgery
- ISS low
HLD
- Hold Crestor 40 mg every afternoon
Anxiety
- c/w EASEMENT MAN alprazolam 0.25 mg p.o. 3 times daily as needed anxiety
- c/w Effexor 37.5 mg daily
Insomnia
Restless leg syndrome
- on gabapentin 600 mg at bedtime and Requip as tolerated
Other PMH:
Migraines no current migraine
Renal calculi-continue potassium citrate 15 mEq p.o. twice daily
Arthritis
DVT Px:LMWH
Code: Full code
IP MS
[2024-12-18] MEDS: PROTONIX IV 40 MG IV (20:18)
[2024-12-18] MEDS: NSS (PRESERVATIVE FREE) 10 ML IV (20:18)
[2024-12-18] MEDS: DILAUDID 1 MG IV (20:28)
[2024-12-18] MEDS: PHENERGAN 50.5 MG IV (20:39)
[2024-12-18] MEDS: XANAX 0.25 MG PO (21:03)
[2024-12-18] MEDS: NEURONTIN PO (22:05)
[2024-12-18] MEDS: HEPARIN 5000 UNITS SC (22:05)
[2024-12-18] MEDS: REQUIP 2 MG PO (22:05)
[2024-12-18] MEDS: MULTIVITAMIN 1011 ML IV (22:11)
[2024-12-18] MEDS: MULTIVITAMIN 1011 MG IV (22:11)
[2024-12-18] MEDS: NSS IV (22:13)
[2024-12-18 22:14] LABS: Glucose - Point of Care 128 mg/dl (70-99)
--- NOTE | 2024-12-19 01:25 | PTCARENOTE ---
Rec'd pt from ER at 2144. transferred to bed. denies pain and says her nausea is a bit better. KCl rider finishing. second started at as ordered. Banana bag started per order. oriented to unit. call davis in reach.
[2024-12-19] MEDS: ZOFRAN 4 MG IV ×3 (01:48→15:27)
--- NOTE | 2024-12-19 01:59 | PTCARENOTE ---
pt with complaint of abdominal pain 9/10, moaning and crying. no prn orders for pain. Rochelle LEUNG was contacted and ordered a stat dose of Dilaudid 1mg and then a prn dose. pt updated. pt also given prn zofran for nausea.
[2024-12-19] MEDS: DILAUDID 1 MG IV (02:01)
[2024-12-19] MEDS: DILAUDID 0.5 MG IV ×2 (04:13→08:45)
[2024-12-19] MEDS: PHENERGAN 50.5 MG IV ×2 (04:34→13:09)
[2024-12-19] MEDS: XANAX 0.25 MG PO ×2 (04:35→09:56)
[2024-12-19 06:41] LABS: Glucose - Point of Care 114 mg/dl (70-99)
[2024-12-19 07:26] VITALS: BP 131/57
[2024-12-19 07:51] LABS: Hematocrit 32.1 % (37.0-47.0); Hemoglobin 9.7 g/dL (12.0-16.0); Mean Corp Hgb Conc. 30.2 g/dL (33.0-37.0); Mean Corpuscular Volume 78.7 fL (81.0-99.0); Nucleated Red Blood Cells % 0 %; Platelet Count 295 10^3/uL (130-400); Red Cell Dist. Width 15.8 % (11.5-14.5)
[2024-12-19 08:24] LABS: ALT (SGPT) 12 U/L (0-35); AST (SGOT) 14 U/L (14-36); Albumin 3.5 g/dl (3.5-5.0); Alkaline Phosphatase 64 U/L (38-126); Blood Urea Nitrogen 13 mg/dl (7-17); Calcium 8.8 mg/dl (8.4-10.2); Carbon Dioxide 27 mmol/L (22-30); Chloride 109 mmol/L (98-107); Estimated Creatinine Clearance 75 ml/min; Glucose 117 mg/dl (70-99); Potassium 3.5 mmol/L (3.5-5.1); Sodium 140 mmol/L (135-145); Total Protein 6.2 g/dl (6.3-8.2); eGFR > 60.00
[2024-12-19] MEDS: NSS 1000 IV ×2 (08:49→21:27)
--- NOTE | 2024-12-19 09:05 | W.PN.HOSP.TC ---
Today's Communication/Plan
-
see A/P
Assessment / Plan
Assessment / Plan
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 She was unable to tolerate any oral intake.
Of note, she had a recent R shoulder replacement on 12/10/[address] Hobson, and has been on Celebrex once daily for pain.
She also is on Mounjaro once a week and last took postsurgery on 12/13.
Due to her ongoing abdominal pain, she has been decreasing her Mounjaro.
CT AP:
Stable postsurgical changes related to previous gastric bypass procedure. No gastric dilatation.
Moderate circumferential wall thickening of the duodenum, raising possibility of duodenitis in the proper clinical setting.
No bowel obstruction. No obstructive uropathy.
A/P:
# N/V and abd cramp/tenderness likely 2/[address] AP
# h/o GERD on COMPLAINT OPERATOR PPI daily
Recc to avoid Celebrex and Mounjaro
Cont IV Zofran PRN, Phenergan PRN
Cont COMPLAINT OPERATOR dicyclomine
IV Protonix change to BID
Avoid IV Dilaudid in setting of current intractable N?V
Check UDS (?marijuana cyclic vomiting syndrome)
Hold COMPLAINT OPERATOR HCTZ
Start clears, cont IVF for now
# Hypokalemia due to UGI loss
replete
Mag level WNL
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
OT eval when more clinically stable
# h/o Gastric bypass surgery
follows with GI Dr. Lagunas in [place]
# NIDDM
Hold metformin 1000 mg daily,
Hold Mounjaro
Cover with ISS low
# HLD
Hold Crestor 40 mg every afternoon
# Anxiety
c/w COMPLAINT OPERATOR alprazolam 0.25 mg p.o. 3 times daily as needed anxiety
c/w Effexor 37.5 mg daily
# Insomnia
# Restless leg syndrome
on gabapentin 600 mg at bedtime and Requip as tolerated
Other PMH:
# Migraines no current migraine
# Renal calculi-continue potassium citrate 15 mEq p.o. twice daily
# Arthritis
DVT Px: LMWH
Code: Full code
DW RN
total time 51 min
Anticipated Discharge: 24 - 48 hours
Subjective/Interval History
-
Date of Service: December 19, 2024
Objective Data
-
Labs:
Laboratory Results
12/19/24
07:13
WBC 8.2
Hgb 9.7 L
Hct 32.1 L
Plt Count 295
Sodium 140
Potassium 3.5
Chloride 109 H
Carbon Dioxide 27
BUN 13
Creatinine 0.4 L
Glucose 117 H
Calcium 8.8
Total Bilirubin 0.3
AST 14
ALT 12
Alkaline Phosphatase 64
Vital Signs:
Vital Signs
Temp Pulse Resp BP Pulse Ox
37.6 C 67 16 131/57 100
12/19/24 07:26 12/19/24 07:26 12/19/24 07:26 12/19/24 07:26 12/19/24 07:26
I&O
12/18/24 12/19/24 12/20/24
06:59 06:59 06:59
Intake Total 1070 / 1070
Balance 1070 / 1070
Review of Systems
-
History Source: Patient
Abdomen/GI: Reports Abdominal Pain (diffuse ), Nausea and Vomiting
Physical Exam
-
General: Well Developed, Well Nourished, No Apparent Distress and Conversant; Negative Respiratory Distress
HEENT: Normocephalic, Atraumatic, Nose Appears Normal and Ears Appear Normal; Negative Oxygen
Respiratory: Clear to Auscultation and Non Labored Respirations; Negative Accessory Resp Muscle Use
Cardiac: Regular Rhythm and S1/S2
GI: Soft, Nondistended, Normal Bowel Sounds and Tender (mild diffuse tenderness)
Skin: Warm and Dry
Neuro: Awake, Alert, Oriented and AO x 3
Psych: Calm and Intact Judgement/Insight
Data Reviewed
-
CT Scan: Report Reviewed by me
Labs: Labs Reviewed by me
[2024-12-19] MEDS: HEPARIN SC (09:21)
[2024-12-19] MEDS: KCL 270 MEQ IV (09:54)
[2024-12-19] MEDS: NSS (PRESERVATIVE FREE) 10 ML IV ×2 (09:56→20:18)
[2024-12-19] MEDS: PROTONIX IV 40 MG IV ×2 (09:56→20:19)
[2024-12-19] MEDS: REQUIP 2 MG PO ×2 (09:57→20:19)
[2024-12-19] MEDS: BENTYL 40 MG PO (09:57)
[2024-12-19] MEDS: EFFEXOR XR 37.5 MG PO (09:57)
[2024-12-19 11:50] LABS: Glucose - Point of Care 109 mg/dl (70-99)
[2024-12-19] MEDS: BENTYL PO ×2 (14:33→17:11)
[2024-12-19 15:45] VITALS: BP 164/82
--- NOTE | 2024-12-19 16:31 | CM ---
CM reviewed chart, patient seen bedside with spouse, initial assessment completed.
Patient resides with spouse in a two level home, two steps to enter.
Patient is independent with ADLs/IADLs, denies use of DME.
Patient reports VN through [facility] in past after knee surgery (2019), denies SNF.
PCP Ham rPice, [facility].
[facility] form verbally reviewed, provided with copy, placed in chart.
CM will continue to follow for all discharge planing needs.
Plan; home with spouse when stable
[2024-12-19] MEDS: LOVENOX 40 MG SC (17:13)
[2024-12-19] MEDS: MORPHINE SULFATE 1 MG IV (17:13)
[2024-12-19 17:36] LABS: Glucose - Point of Care 114 mg/dl (70-99)
[2024-12-19] MEDS: COMPAZINE 10 MG IV (20:34)
[2024-12-19] MEDS: FLUSH (NSS) 2 FLUSH IV (20:37)
[2024-12-19] MEDS: NEURONTIN 600 MG PO (21:24)
[2024-12-19 23:01] VITALS: BP 102/54
[2024-12-19 23:53] LABS: Glucose - Point of Care 105 mg/dl (70-99)
[2024-12-20] MEDS: XANAX 0.25 MG PO (03:01)
[2024-12-20 05:57] LABS: Glucose - Point of Care 86 mg/dl (70-99)
[2024-12-20] MEDS: NSS 1000 IV (07:19)
[2024-12-20 07:25] VITALS: BP 110/45
[2024-12-20 08:28] LABS: Hematocrit 31.6 % (37.0-47.0); Hemoglobin 9.8 g/dL (12.0-16.0); Mean Corp Hgb Conc. 31.0 g/dL (33.0-37.0); Mean Corpuscular Volume 77.1 fL (81.0-99.0); Platelet Count 265 10^3/uL (130-400); Red Cell Dist. Width 15.9 % (11.5-14.5)
[2024-12-20] MEDS: BENTYL 40 MG PO ×2 (08:30→12:58)
[2024-12-20] MEDS: EFFEXOR XR 37.5 MG PO (08:31)
[2024-12-20] MEDS: REQUIP 2 MG PO (08:31)
--- NOTE | 2024-12-20 08:33 | W.PN.HOSP.TC ---
Addendum entered and electronically signed by Elsa Sue MD 12/20/24 13:07:
# Hypokalemia noted,
Magnesium level within normal limits
replete potassium before discharge.
Check BMP in 1 week, result to PCP
Original Note:
Today's Communication/Plan
-
see A/P
ADAT and possible DC later today if tolerating solid
Assessment / Plan
Assessment / Plan
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 She was unable to tolerate any oral intake.
Of note, she had a recent R shoulder replacement on 12/10/[address] Hobson, and has been on Celebrex once daily for pain.
She also is on Mounjaro once a week and last took postsurgery on 12/13.
Due to her ongoing abdominal pain, she has been decreasing her Mounjaro.
CT AP:
Stable postsurgical changes related to previous gastric bypass procedure. No gastric dilatation.
Moderate circumferential wall thickening of the duodenum, raising possibility of duodenitis in the proper clinical setting.
No bowel obstruction. No obstructive uropathy.
A/P:
# N/V and abd cramp/tenderness likely 2/[address] AP
# h/o GERD on ORACLE PROGRAMMER PPI daily
Recc to avoid Celebrex and Mounjaro
IV Zofran PRN, Compazine PRN
Cont ORACLE PROGRAMMER dicyclomine
Protonix changed to BID, cont BID for 4 weeks then can go back to daily
Avoid IV Dilaudid in setting of current intractable N?V
UDS noted (neg for marijuana, positive for opiate and benzo could be iatrogenic)
can resume ORACLE PROGRAMMER HCTZ after DC with hold parameter
Started clears, advance to full and later solid today
DC further IVF
# Hypokalemia due to UGI loss
replete
Mag level WNL
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
OT eval when more clinically stable
# h/o Gastric bypass surgery
follows with GI Dr. Lagunas in [place]
# NIDDM
can resume metformin 1000 mg daily after discharge
Would recc to hold Mounjaro
Cover with ISS low
# HLD
Hold Crestor 40 mg every afternoon
# Anxiety
c/w ORACLE PROGRAMMER alprazolam 0.25 mg p.o. 3 times daily as needed anxiety
c/w Effexor 37.5 mg daily
# Insomnia
# Restless leg syndrome
on gabapentin 600 mg at bedtime and Requip as tolerated
Other PMH:
# Migraines no current migraine
# Renal calculi-continue potassium citrate 15 mEq p.o. twice daily
# Arthritis
DVT Px: LMWH
Code: Full code
DW RN
Anticipated Discharge: Today
Subjective/Interval History
-
Date of Service: December 20, 2024
Objective Data
-
Labs:
Laboratory Results
12/20/24
08:20
WBC 7.9
Hgb 9.8 L
Hct 31.6 L
Plt Count 265
Sodium Pending
Potassium Pending
Chloride Pending
Carbon Dioxide Pending
BUN Pending
Creatinine Pending
Glucose Pending
Calcium Pending
Vital Signs:
Vital Signs
Temp Pulse Resp BP Pulse Ox
36.9 C 57 16 102/54 97
12/19/24 23:01 12/19/24 23:01 12/19/24 23:01 12/19/24 23:01 12/19/24 23:01
I&O
12/19/24 12/20/24 12/21/24
06:59 06:59 06:59
Intake Total 1070 / 1070 120 / 120
Balance 1069 120 / 120
Review of Systems
-
History Source: Patient
All other systems: Reviewed and negative
Abdomen/GI: Denies Abdominal Pain, Nausea or Vomiting
Physical Exam
-
General: Well Developed, Well Nourished, No Apparent Distress and Conversant; Negative Respiratory Distress
HEENT: Normocephalic, Atraumatic, Nose Appears Normal and Ears Appear Normal; Negative Oxygen
Respiratory: Clear to Auscultation and Non Labored Respirations; Negative Accessory Resp Muscle Use
Cardiac: Regular Rhythm and S1/S2
GI: Soft, Nontender, Nondistended and Normal Bowel Sounds
Skin: Warm and Dry
Neuro: Awake, Alert, Oriented and AO x 3
Psych: Calm and Intact Judgement/Insight
Data Reviewed
-
CT Scan: Report Reviewed by me
Labs: Labs Reviewed by me
[2024-12-20 09:07] LABS: Blood Urea Nitrogen 11 mg/dl (7-17); Calcium 9.1 mg/dl (8.4-10.2); Carbon Dioxide 24 mmol/L (22-30); Chloride 111 mmol/L (98-107); Estimated Creatinine Clearance 75 ml/min; Glucose 78 mg/dl (70-99); Magnesium 2.1 mg/dl (1.6-2.3); Potassium 3.3 mmol/L (3.5-5.1); Sodium 139 mmol/L (135-145); eGFR > 60.00
[2024-12-20] MEDS: NSS (PRESERVATIVE FREE) IV (09:56)
[2024-12-20] MEDS: PROTONIX IV IV (09:56)
[2024-12-20] MEDS: PROTONIX 40 MG PO (09:59)
--- NOTE | 2024-12-20 11:34 | CM ---
Met with patient and at bedside; she reported will provide transport home
Plan: discharge to home later today if she tolerates lunch; no needs
[2024-12-20 11:35] VITALS: BP 113/50
[2024-12-20 11:48] LABS: Glucose - Point of Care 82 mg/dl (70-99)
[2024-12-20] MEDS: FLUZONE (6 mos+) 2025-2026 FORMULA 0.5 ML IM (12:59)
--- NOTE | 2024-12-20 13:35 | W.DCSUMMARY ---
Discharge Summary
Discharge Data
Date of Admission: 12/18/24
Date of Discharge: 12/20/24
Total time spent discharging patient (in min): 40
-
Pending Results: No
Hospital Course
Principal Diagnosis:
N/V and abdominal cramp/tenderness likely 2/[address] AP
Hypokalemia due to UGI loss.
Chronic Diagnoses:�
Recent R shoulder replacement by Dr Hobson
h/o Gastric bypass surgery. Follows with GI Dr. Lagunas in [place]
h/o GERD
NIDDM on metformin
HLD, on Crestor
Anxiety, on alprazolam and Effexor
Insomnia
Restless leg syndrome,
Migraines
Consultations:�
None
Procedures:�
None
Clinical course:�
This is a 64-year-old female with past medical history as stated above, who presented with intractable nausea, vomiting, and abdominal pain.
Her admission CT AP was unrevealing: Stable postsurgical changes related to previous gastric bypass procedure. No gastric dilatation. Moderate circumferential wall thickening of the duodenum, raising possibility of duodenitis in the proper clinical
setting. No bowel obstruction. No obstructive uropathy.
Problem 1:
N/V and abdominal cramp/tenderness likely 2/[address] AP.
She was recently started with Celebrex for her Right shoulder replacement.
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
She received Protonix 40 mg IV twice daily while in the hospital, and was discharged with p.o. twice daily for 4 weeks, before going back to her previous home dose which was daily.
Her symptom largely improved while in the hospital with as needed Zofran and Compazine.
She was able to tolerate solid food prior to discharge.
Of note, her UDS was noted (neg for marijuana, positive for opiate and benzo which could be iatrogenic).
Problem 2:
Hypokalemia due to UGI loss.
She received potassium repletion while in the hospital.
She can check repeat potassium level in 1 week, result to her PCP.
As for the rest of her medical problems, they were stable during her hospital stay.
Discharge Plan
-
Patient Disposition: Home (Routine Discharge)
Discharge Diagnosis/Procedures: Nausea/vomiting/abdominal cramp likely due to duodenitis (noted on CT)
Condition: Good
Diet: As tolerated and Diabetic, Carb Controlled
Activity: As tolerated
Driving Restrictions: As prior to admission
Blood Work: BMP
Referrals:
Ham Price MD [Family Provider, [facility]] - in less than 1 week
Additional Discharge Medication Instructions: Take Protonix twice daily for 4 weeks, then go back to once daily
Recommend to hold Mounjaro until further instructed by your doctor
Prescriptions:
New
(DME) BMP
See Rx Instructions .Route .MEDSUPPLY Qty: 1 0RF
Rx Instructions:
12/23 - 12/27/2024, result to your PCP
# hypokalemia
Continued
potassium citrate 15 MEQ tablet extended release
15 meq PO BID
alprazolam 0.25 MG tablet
0.25 mg PO TIDPRN PRN (Reason: ANEXITY)
metformin 1,000 MG tablet
1,000 mg PO DAILY
rosuvastatin [Crestor] 40 MG tablet
40 mg PO QPM
gabapentin 600 MG tablet
600 mg PO HS
dicyclomine 20 MG tablet
40 mg PO AC
zolpidem 10 mg tablet
10 mg PO HS
ropinirole 2 mg Tablet
2 mg PO BID
biotin 10,000 mcg Capsule
10,000 mcg PO DAILY
syiorqnsfh-vmjolzs-tqdlaati 50-325-40 mg Tablet
1 tab PO Q6HPRN PRN (Reason: HEADACHES)
finasteride [Propecia] 1 mg Tablet
1 mg PO HS
venlafaxine 37.5 mg Tablet Extended Release 24hr
37.5 mg PO DAILY
therapeutic multivitamin Tablet
1 tab PO DAILY
estradiol [Estrace] 0.01 % (0.1 mg/gram) Cream
1 appful VAGINAL WESA
hydrochlorothiazide 25 MG tablet
25 mg PO DAILY Qty: 0 0RF
Rx Instructions:
hold if systolic blood pressure < 120
Changed
pantoprazole 40 MG tablet,delayed release (DR/EC)
40 mg PO Q12H Qty: 60 0RF
Held
Mounjaro 10 mg/0.5 mL Pen Injector
10 mg SC FR
Hold Instructions: Resume on 12/27/24. Hold until further instructed by your doctor
Discharge Orders:
Discharge Patient (As Directed); Ordered 12/20/24
Ordered By: Elsa Sue
Discharge Date and Time
Print Language: OCCITAN
[2024-12-20] MEDS: KCL 40 MEQ PO (13:56)
== END 2024-12-20 14:20 | disposition home or self-care (01) ==
LOC: 4 EAST ACU 21:06
PROVIDERS: Clinical Nurse Specialist Family Health; Physician Assistant; ADMITTING PHYSICIAN Internal Medicine; ATTENDING PHYSICIAN Internal Medicine; EMERGENCY PHYSICIAN Emergency Medicine; FAMILY PHYSICIAN Family Medicine
DX: R11.2 Nausea with vomiting, unspecified (principal); R10.84 Generalized abdominal pain; E11.9 Type 2 diabetes mellitus without complications; K21.9 Gastro-esophageal reflux disease without esophagitis; E87.6 Hypokalemia; E78.5 Hyperlipidemia, unspecified; G43.909 Migraine, unspecified, not intractable, without status migrainosus; M19.90 Unspecified osteoarthritis, unspecified site; F41.9 Anxiety disorder, unspecified; G47.00 Insomnia, unspecified; G25.81 Restless legs syndrome; G89.29 Other chronic pain; R94.31 Abnormal electrocardiogram [ECG] [EKG]; Z98.84 Bariatric surgery status; Z96.611 Presence of right artificial shoulder joint; Z87.891 Personal history of nicotine dependence; Z98.1 Arthrodesis status; Z79.899 Other long term (current) drug therapy; Z79.84 Long term (current) use of oral hypoglycemic drugs; Z87.442 Personal history of urinary calculi; Z23 Encounter for immunization
CPT/HCPCS: 74177; 80048; 80053; 80306; 80307; 82962; 83605; 83690; 83735; 85025; 85027; 90656; 93005; 96365; 96366; 96375; 96376; 99285; G0008; G0378; Q9967